=== PATIENT | male | born 1965 | race Two or more races ===

== ENCOUNTER 2023-06-09 13:29 | Emergency (ER) | payer OTHER, MEDICAID ==
[~2023-06-09] VITALS: Ht 165.1 cm; Wt 107.4 kg
[2023-06-09 15:03] VITALS: BP 143/80; PULSE 100; RESP 14; TEMP 98.9; O2SAT 97
[2023-06-09] MEDS: LIDOCAINE 1% HCL (LOCAL ANESTH.) INJ 20ML MDV ID ONE (15:22)
[2023-06-09] MEDS: NEOMYCIN-BACITRACIN-POLYM UNITDOSE PKG TOP OINT TOP ONE (15:22)
[2023-06-09] MEDS ORDERED: CEPH500C PO (15:58)
== END 2023-06-09 16:15 | disposition home or self-care (01) ==
LOC: ER 13:29
DX: S01.81XA Laceration without foreign body of other part of head, initial encounter (principal); Z79.899 Other long term (current) drug therapy; W22.8XXA Striking against or struck by other objects, initial encounter; Y93.89 Activity, other specified; Y92.098 Other place in other non-institutional residence as the place of occurrence of the external cause; Y99.8 Other external cause status
CPT/HCPCS: 12013; 99283; J2001

== ENCOUNTER 2023-06-16 12:44 | Emergency (ER) | payer OTHER, MEDICAID ==
[~2023-06-16] VITALS: Ht 165.1 cm; Wt 108.6 kg
[~2023-06-16 12:44] MED LIST: CEPH500C PO
[2023-06-16 14:35] VITALS: BP 133/75; PULSE 91; RESP 18; TEMP 98.8; O2SAT 97
== END 2023-06-16 14:39 | disposition home or self-care (01) ==
LOC: ER 12:44
DX: S01.81XD Laceration without foreign body of other part of head, subsequent encounter (principal); Z48.00 Encounter for change or removal of nonsurgical wound dressing; Z79.899 Other long term (current) drug therapy; X58.XXXD Exposure to other specified factors, subsequent encounter